=== PATIENT | female | born 1985 | race Caucasian/White ===

== ENCOUNTER 2023-01-10 06:14 | Emergency (ER) | payer BC, MEDICAID, SELFPAY ==
--- NOTE | ~2023-01-10 | XR_ITS ---
EXAMINATION: XR CHEST CLINICAL INFORMATION: Pain COMPARISON: None available. TECHNIQUE: Frontal view of the chest was obtained. One view FINDINGS: No significant abnormality is noted involving the heart, lungs, mediastinum, bony thorax or soft tissues. XR/XR chest 1V IMPRESSION: No evidence of acute cardiopulmonary disease.
[2023-01-10 06:21] VITALS: BMI 34.5
--- NOTE | 2023-01-10 06:22 | ECG_ITS ---
Test Reason : CHEST PAIN Blood Pressure : / mmHG Vent. Rate : 085 BPM Atrial Rate : 085 BPM P-R Int : 142 ms QRS Dur : 086 ms QT Int : 378 ms P-R-T Axes : 059 077 060 degrees QTc Int : 449 ms Normal sinus rhythm Normal ECG No previous ECGs available Referred By: Nelsy Hammonds Electronically Signed By:MICHAEL MAYA MD
[2023-01-10 06:24] VITALS: BP 118/79; PULSE 100; RESP 15; TEMP 36.4; O2SAT 100
[2023-01-10 06:34] LABS: MANUAL DIFF FLAG NO
[2023-01-10 06:35] LABS: Basophils Percent Auto 0.4 % (0-2); Eosinophils Absolute Auto 0.3 X10*3/uL (0.0-0.4); Eosinophils Percent Auto 3.3 % (0-4); Hematocrit 40.1 % (37.0-47.0); Hemoglobin 13.4 g/dl (12.0-16.0); Imm Gran Abs Auto 0.03 X10*3/uL (0.00-0.03); Imm Gran Pct Auto 0.3 % (0.0-0.4); Lymphocytes Absolute Auto 2.1 X10*3/uL (1.2-4.9); Lymphocytes Percent Auto 22.2 % (20-40); Mean Corpuscular HGB Conc 33.4 g/dl (31.0-35.0); Mean Corpuscular Hemoglobin 27.6 pg (27.0-33.0); Mean Corpuscular Volume 82.7 fL (80.0-98.0); Monocytes Absolute Auto 0.5 X10*3/uL (0.1-1.2); Monocytes Percent Auto 5.6 % (2-11); Neutrophils Absolute Auto 6.5 x10*3/uL (2.0-8.3); Neutrophils Percent Auto 68.2 % (45-73); Platelet Count 293 X10*3/uL (160-400); Red Blood Count 4.85 X10*6/uL (4.20-5.50); Red Cell Distribution Width 12.4 % (11.0-16.0); White Blood Count 9.6 X10*3/uL (4.8-10.8)
[2023-01-10 06:44] LABS: INTERNATIONAL NORM RATIO 0.9 (0.9-1.1); Prothrombin Time 10.6 SEC (11.1-13.3)
[2023-01-10 06:55] LABS: Alanine Aminotransferase 14 U/L (0-31); Albumin Level 4.3 g/dL (3.5-5.0); Alkaline Phosphatase 69 U/L (39-117); Anion Gap 15 (12-20); Aspartate Amino Transferase 18 U/L (5-31); Bilirubin Direct < 0.2 mg/dL (0.0-0.5); Bilirubin Total 0.2 mg/dL (0.0-1.0); Blood Urea Nitrogen 14 mg/dL (9-16); Calcium 9.7 mg/dL (8.4-10.2); Carbon Dioxide 23 mmol/L (22-29); Chloride 108 mmol/L (96-108); Creatinine Clr Calc Pharmacy 104.7; Estimated Glomerular Filt Rate > 60; Glucose Random 161 mg/dL (60-115); Magnesium 1.9 mg/dL (1.6-2.6); Potassium 3.9 mmol/L (3.3-5.1); Sodium 142 mmol/L (135-145); Total Protein 7.8 g/dL (6.5-8.0)
[2023-01-10 06:57] LABS: HCG Quantitative < 2 mIU/mL; Troponin-I High Sensitivity < 2.7 ng/L (<3.5-17.0)
--- NOTE | 2023-01-10 07:07 | PC.NURSE ---
Patient alert and oriented. dexacom reading showing bs is 226, patient asking if she can give herself 4 units of insulin via pump.Provider notified and okay with 4 units of self administered insulin
[2023-01-10 07:09] LABS: TSH reflex Free T4 0.69 uIU/mL (0.32-4.0)
[2023-01-10 07:22] VITALS: BP 121/88; PULSE 90; RESP 12; TEMP 36.5; O2SAT 97
--- NOTE | 2023-01-10 07:24 | ED_ITS ---
HPI - Arrhythmia/Palpitations General Chief Complaint: Arrhythmia/Palpitations Stated Complaint: Palpitations/Chest tightness Time Seen by Provider: 01/10/23 06:38 Source: patient Mode of arrival: ambulatory Limitations: no limitations History of Present Illness HPI narrative: 37-year-old female who presents emergency department for evaluation of palpitations. Patient states the last 2 days she has been having palpitations. She states that they mainly come on when she is at rest. She describes the sensation as a fast heartbeat with a skipping sensation of pounding sensation. She states she also experiences a brief tightness in her sternal area when she gets the palpitations. She states that this morning when she experience the palpitation she felt lightheaded. She states she also felt short of breath. The patient states that she stop drinking caffeine several weeks ago. She states that her job is stressful but she is not under increased stress. The patient does have a History of hypothyroidism and does have an manager web application the follows her diabetes and thyroid disease. patient denied fever, chills, rhinorrhea. She states she has had a occasional cough since yesterday. She denied nausea, vomiting, dark tarry stools, dysuria. The patient states she checked her apple watch while she was having palpitations in her heart rate was less than 100. She states that 2 weeks prior she did have a heart rate was 120 beats per minute but she was asymptomatic. Related Data Allergies Allergy/AdvReac Type Severity Reaction Status Date / Time No Known Allergies Allergy Unverified 12/12/19 19:00 [No Known Allergies*] Review of Systems 2 Review of Systems: Yes all other systems are reviewed and are negative [facility] Past Medical History Attestation statement: The following information was validated with the patient. [facility] Narrative: Past medical history: Diabetes mellitus, hyperlipidemia, hypothyroidism. Social history: She denies tobacco use. She drinks alcohol once a week -2-3 glasses of wine. She denies drug use. 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 Social History Social History Alcohol intake: current Alcohol intake frequency: a few times a week Smoked in Last 30 Days: No Advance Directives: No Advance Directives Information Provided: No Physical Exam 2 Vital Signs: Vital Signs: Last Vital Signs Temp 97.7 F 01/10/23 07:22 Pulse 90 01/10/23 07:22 Resp 12 01/10/23 07:22 BP 121/88 01/10/23 07:22 Pulse Ox 97 01/10/23 07:22 O2 Del Method Room Air 01/10/23 07:22 BMI result Body Mass Index 34.5 vital signs were normal exam: General: Awake, alert in no distress Head: Normocephalic, atraumatic EENT: PERRL, Lids normal, sclera normal, conjunctiva normal, nose normal , ears normal, throat without erythema or exudates Neck: Supple, no adenopathy, trachea midline and nontender Lung: breath sounds symmetric, no wheezing, rales or rhonchi Chest: symmetric movement, nontender Heart: regular rate and rhythm, normal S1, S2 no murmurs or rubs Abdomen: soft, non-tender, nondistended, normal bowel sounds Back: no vertebral tenderness, no CVAT Extremities: no deformities, moves all extremities symmetrically Skin: no rashes, no lesion, normal color and warmth Neuro: Awake, alert, oriented, normal speech, cranial nerves intact, moves all extremities symmetrically Psych: Pleasant, cooperative Medical Decision Making Medical Decision Making MDM Narrative: 37-year-old female with history of diabetes mellitus, hyperlipidemia, hypothyroidism who presents emergency department for evaluation of 2 days of palpitations. The patient did have associated chest pain, lightheadedness and shortness of breath however the symptoms were mild and brief. Following evaluation was ordered: 12 EKG, chest x-ray one view, CBC, quantitative beta- hCG, magnesium, PT / INR, troponin, BMP, liver panel, TSH with reflex T4. Patient was placed on a cardiac and O2 saturation monitor. 07:48 the patient's laboratory evaluation was unremarkable. Patient's 12 EKG and chest x-ray were normal. The patient most likely is experiencing PACs verses PVCs and I did discuss this with her. The patient was advised to follow-up with her PCP to pursue further outpatient workup of her palpitations. Differential Diagnosis Differential Diagnoses: The differential diagnosis associated with the presentation includes differential diagnosis includes was not limited to PACs, PVCs, arrhythmia Admission/Observation Consideration of admission/observation: Escalation of care including admission/observation considered Lab Data my independent interpretation of the patient's laboratory evaluation as follows: CBC was normal. BMP was normal. TSH was in the normal range. 01/10/23 06:28 01/10/23 06:28 Labs: Lab Results 01/10/23 Range/Units 06:28 WBC 9.6 (4.8-10.8) X10*3/uL RBC 4.85 (4.20-5.50) X10*6/uL Hgb 13.4 (12.0-16.0) g/dl Hct 40.1 (37.0-47.0) % MCV 82.7 (80.0-98.0) fL MCH 27.6 (27.0-33.0) pg MCHC 33.4 (31.0-35.0) g/dl RDW 12.4 (11.0-16.0) % Plt Count 293 (160-400) X10*3/uL MPV 11.0 (9.4-12.3) fL Immature Gran % (Auto) 0.3 (0.0-0.4) % Neut % (Auto) 68.2 (45-73) % Lymph % (Auto) 22.2 (20-40) % Carson % (Auto) 5.6 (2-11) % Eos % (Auto) 3.3 (0-4) % Baso % (Auto) 0.4 (0-2) % Lymph # (Auto) 2.1 (1.2-4.9) X10*3/uL Carson # (Auto) 0.5 (0.1-1.2) X10*3/uL Eos # (Auto) 0.3 (0.0-0.4) X10*3/uL Baso # (Auto) 0.0 (0.0-0.2) X10*3/uL Abs Immat Gran (auto) 0.03 (0.00-0.03) X10*3/uL Absolute Neuts (auto) 6.5 (2.0-8.3) x10*3/uL Absolute Nucleated RBC 0.000 (0.0-0.012) X10*3/uL Nucleated RBC % (auto) 0.0 (0.0-0.2) /100WBC PT 10.6 L (11.1-13.3) SEC INR 0.9 (0.9-1.1) Sodium 142 (135-145) mmol/L Potassium 3.9 (3.3-5.1) mmol/L Chloride 108 (96-108) mmol/L Carbon Dioxide 23 (22-29) mmol/L Anion Gap 15 (12-20) BUN 14 (9-16) mg/dL Creatinine 0.82 (0.5-1.4) mg/dL Estim Creat Clear Calc 104.7 Estimated GFR > 60 Random Glucose 161 H (60-115) mg/dL Calcium 9.7 (8.4-10.2) mg/dL Magnesium 1.9 (1.6-2.6) mg/dL Total Bilirubin 0.2 (0.0-1.0) mg/dL Direct Bilirubin < 0.2 (0.0-0.5) mg/dL AST 18 (5-31) U/L ALT 14 (0-31) U/L Alkaline Phosphatase 69 (39-117) U/L Troponin I High Sens < 2.7 (<3.5-17.0) ng/L Total Protein 7.8 (6.5-8.0) g/dL Albumin 4.3 (3.5-5.0) g/dL TSH 0.69 (0.32-4.0) uIU/mL Beta HCG, Quant < 2 mIU/mL Independent Interpretation I performed an independent interpretation of an: EKG Interpretation: My independent interpretation patient's 12 EKG is as follows: Normal sinus rhythm with a rate of 85, normal AR interval, QRS duration QTC interval, no ST segment elevation, no ST segment depression, no significant T-wave abnormalities-this is a normal EKG. My independent interpretation patient's one-view chest x-ray is as follows: No acute disease Radiology Impression Radiologist Impression: XR chest 1V IMPRESSION: No evidence of acute cardiopulmonary disease. Dictated By: Dianne Seals MD Discharge Plan Discharge Clinical Impression: Palpitations Patient Disposition: Home, Self-Care Instructions: Heart Palpitations (ED) Additional Instructions: You had a CBC, BMP, liver panel, quantitative test -these tests were all normal, you are not your TSH ( thyroid stimulating hormone ) was normal at 0.69, therapeutic range is 0.32 to 4.0. This suggests that your thyroid hormone is at the right level. Your palpitations are most likely caused by premature atrial contractions or premature ventricular contractions however you will need further testing by your primary care doctor which may include Holter monitor, event monitor, echocardiogram or other test that your doctor thinks are appropriate. Follow-up with your doctor in 2 days. Please return to the emergency department if your symptoms get worse or if you develop any symptoms that are concerning to you.
--- NOTE | 2023-01-10 08:11 | PC.NURSE ---
Discharge plan reviewed with patient who verbalized understanding
== END 2023-01-10 08:11 | disposition home or self-care (01) ==
PROVIDERS: Emergency Medicine; Emergency Provider Emergency Medicine Emergency Medical Services; PCP Family Medicine
DX: R00.2 Palpitations (principal); E11.9 Type 2 diabetes mellitus without complications; E78.5 Hyperlipidemia, unspecified; E03.9 Hypothyroidism, unspecified; R06.02 Shortness of breath
CPT/HCPCS: 36415; 71045; 80048; 80076; 83735; 84443; 84484; 84702; 85025; 85610; 93005; 99283; 99285

== ENCOUNTER 2024-11-29 02:30 | Emergency (ER) | payer BC, SELFPAY ==
[2024-11-29 02:34] VITALS: BP 114/75; PULSE 112; RESP 18; TEMP 36.8; O2SAT 97; BMI 23.6
[2024-11-29 03:08] VITALS: BP 109/66; PULSE 92; RESP 17; TEMP 36.9; O2SAT 98
--- NOTE | 2024-11-29 03:10 | PC.NURSE ---
Pt seen at primary for painful cyst on buttocks, given doxy as an abx. Pt has had two doses. PCP said they could not drain it, and they would call [facility] to drain it. Patient stating she took ibuprofen for pain and it did not help. Pt never heard back from [facility] or PCP but pain is 9/10. so she came in. Pt says sitting hurts worst, laying helps the most. given call [facility] to make her needs known. Alert and oriented with a steady gait. Plan of care is on going.
--- OUTSIDE RECORDS SUMMARY | 2024-11-29 03:16 | XMS_ITS | Clinical Summary ---
Author Organization [facility] Address [address] [place] [id number] Phone Care Team Providers Care Want Ad Clerk Name Role Phone Janel Haley MD Primary Care Provider [phone] Allergies No known active allergies Medications ONETOUCH VERIO Strp strips 1 each by Miscellaneous route every morning. Active lancets (ACCU-CHEK FASTCLIX LANCET DRUM MISC) by Miscellaneous route. Active multivitamin (MULTI-DAY ORAL) Take by mouth. Active vitamin B complex (B COMPLETE ORAL) Take by mouth. Active cholecalciferol, vitamin D3, (VITAMIN D3 ORAL) Take by mouth. Active blood-glucose meter,continuous (DEXCOM G6 LENDING CONSULTANT) MiscIndications:T ype 1 diabetes mellitus with hyperglycemia by Miscellaneous route as needed. 1 each 12/25/19 21 Active Additional Information Patient not taking.Reported on 06/03/2024 blood-glucose transmitter (DEXCOM G6 TRANSMITTER) DeviIndications:T ype 1 diabetes mellitus with hyperglycemia 1 application by Miscellaneous route daily. 1 each 3 12/25/19 21 Active Additional Information Patient not taking.Reported on 11/09/2023 blood-glucose meter,continuous (DEXCOM G7 LENDING CONSULTANT) MiscIndications:T ype 1 diabetes mellitus with hyperglycemia by Miscellaneous route as needed. 1 each 05/30/19 24 Active blood-glucose sensor (DEXCOM G7 SENSOR) DeviIndications:T ype 1 diabetes mellitus with hyperglycemia 1 Application by Miscellaneous route Every 10 Days. 3 each 11 05/30/19 24 Active levothyroxine (SYNTHROID, LEVOTHROID) 125 MCG tabletIndications :Hypothyroidism, unspecified type take 1 tablet by mouth every morning 90 tablet 3 12/11/19 24 Active HUMALOG KWIKPEN INSULIN 100 unit/mL kwikpenIndication s:Type 1 diabetes mellitus with hyperglycemia Inject 6-18 Units under the skin 3 (three) times a day with meals. 15 mL 1 06/04/19 25 Active BD INSULIN PEN NEEDLE UF SHORT 31 gauge x 16 NdleIndications:T ype 1 diabetes mellitus with hyperglycemia Inject 1 each under the skin 4 (four) times a day before meals and nightly. 400 each 3 06/04/19 25 Active LANTUS SOLOSTAR U-100 INSULIN 100 unit/mL (3 mL) InPn injection penIndications:Ty pe 1 diabetes mellitus with hyperglycemia Inject 15 Units under the skin nightly at bedtime. 15 mL 1 06/04/19 25 Active tirzepatide (MOUNJARO) 15 mg/0.5 mL PnIj subcutaneous penIndications:Ty pe 1 diabetes mellitus with hyperglycemia Inject 0.5 mL (15 mg total) under the skin every 7 days. 6 mL 1 06/04/19 25 Active atorvastatin (LIPITOR) 20 MG tabletIndications :Type 1 diabetes mellitus with hyperglycemia,Hyp erlipidemia LDL goal <100 Take 1 tablet (20 mg total) by mouth daily. 90 tablet 1 06/04/19 25 Active Active Problems Problem Noted Date Diagnosed Date Hypothyroidism 05/31/2021 Assessment & Plan (06/03/2024 2:46 PM EDT): Chemically and clinically euthyroid on current dose of levothyroxine will repeat thyroid function studies prior to the follow-up visit in 3 months. Assessment & Plan (02/19/2024 12:01 PM EST): Chemically and clinically euthyroid Assessment & Plan (11/09/2023 3:42 PM EDT): Chemically and clinically euthyroid continue current dose of levothyroxine. Assessment & Plan (05/30/2023 12:24 PM EST): Chemically and clinically euthyroid levothyroxine 125 mcg. She needs to repeat thyroid function studies prior to the follow-up visit in 3 months time. Assessment & Plan (01/12/2023 3:25 PM EDT): Chemically euthyroid continue current dose of levothyroxine Assessment & Plan (10/06/2022 3:14 PM EDT): Chemically and clinically euthyroid continue dose of levothyroxine 125 mcg. Thyroid function studies in 1 year by 08/18/2023. Assessment & Plan (11/09/2021 1:42 PM EDT): Chemically and clinically euthyroid continue levothyroxine 125 mcg daily. She is due for repeat thyroid function studies in 1 year x 11/09/2022. I will order thyroid function studies at a later date Assessment & Plan (05/31/2021 4:48 PM EST): Chemically euthyroid but symptomatic so I am increasing the dose of levothyroxine from 100 to 125 mcg and she will repeat thyroid function studies in 3 months. Hyperlipidemia LDL goal <100 02/24/2021 Assessment & Plan (06/03/2024 2:46 PM EDT): Controlled. LDL 63 mg/dL continue atorvastatin 20 mg. Repeat lipid panel fasting prior to the follow-up visit Assessment & Plan (02/19/2024 12:01 PM EST): Controlled. LDL 63 mg/dL on atorvastatin. Assessment & Plan (11/09/2023 3:46 PM EDT): Controlled. LDL 63 mg/dL continue atorvastatin 20 mg. No changes required. Assessment & Plan (05/30/2023 12:23 PM EST): Controlled. LDL 63 mg/dL continue atorvastatin 20 mg. Assessment & Plan (01/12/2023 3:25 PM EDT): Uncontrolled. LDL increased to 120 mg after stopping atorvastatin. She has since resumed atorvastatin. We will repeat lipid panel prior to the follow-up visit. Assessment & Plan (10/06/2022 3:15 PM EDT): Fair control LDL 100 mg/dL atorvastatin 20 mg. We will continue current dose. She will need a repeat lipid panel by January 2023. So we will request this study for the follow-up visit Assessment & Plan (03/02/2022 4:22 PM EST): Fair control the LDL was 100 mg/dL on atorvastatin 20 mg and not been to make any changes. Assessment & Plan (11/09/2021 1:38 PM EDT): Unfortunately LDL is back up she does forget to take cholesterol medication so she was advised to be more consistent with atorvastatin administration. I will repeat the lipid panel again prior to the follow-up visit Assessment & Plan (05/31/2021 4:47 PM EST): Much improved LDL 103 mg/dL on atorvastatin 20 mg on letter to make any changes for which is repeat the lipid panel in 3 months. Assessment & Plan (02/24/2021 4:40 PM EST): Uncontrolled. LDL 152 mg/dL will prescribe atorvastatin 20 mg. Advised on diet as well. She will repeat her lipid panel in 3 months. Type 1 diabetes mellitus with hyperglycemia 11/27 Assessment & Plan (06/03/2024 2:45 PM EDT): Uncontrolled. She is still having hypoglycemia overnight and 34% elevated glucose levels so she needs to bolus for her coffee and cream because that is resulting in elevated glucose levels and she needs to bolus for her meals. She is already at the maximum dose of Mounjaro. We have to decreased her Lantus again to 15 units because she still developing hypoglycemia. She is going low after dinner and maybe this is from Humalog but since I am decreasing the Lantus I want to change the correction scale.The patient has current severe hypoglycemia. There is significant concern hypoglycemic seizures which can be potentially fatal. I reemphasized to the patient that the use of insulin is high risk therapy that requires intensive monitoring for toxic effects (hypoglycemia, metabolic decompensation) due to the narrow therapeutic index of the medication and other factors (such as age, acute renal insufficiency, variable appetite and use of steroids) therefore close monitoring of blood sugar with regular review is paramount in the safe use of this medication. Assessment & Plan (02/19/2024 12:01 PM EST): Hemoglobin A1c 5.9%. She still having lows overnight so I am decreasing the Lantus to 20 units but she has elevated glucose during the day so I am increasing the Mounjaro to 15 she will continue the same correction scale. The patient has current severe hypoglycemia. There is significant concern hypoglycemic seizures which can be potentially fatal. I reemphasized to the patient that the use of insulin is high risk therapy that requires intensive monitoring for toxic effects (hypoglycemia, metabolic decompensation) due to the narrow therapeutic index of the medication and other factors (such as age, acute renal insufficiency, variable appetite and use of steroids) therefore close monitoring of blood sugar with regular review is paramount in the safe use of this medication. Assessment & Plan (11/09/2023 3:43 PM EDT): Uncontrolled. Hemoglobin A1c is 5.7% but she is having a lot of hypoglycemia. Yet the same time she is having postprandial hyperglycemia. Uncertain if this is because she is eating because of lower glucose levels in the cardiology consultant. She is already on correction scale 70-100 equal 6 units and increasing by 2 units every 50 mg/dL. She should continue Mounjaro at the current dose decrease the Lantus to 25 units. If in 1 week's time her glucose levels are still going low overnight she should decrease the Lantus to 20 units. But if she notices that her postprandial glucose going up she needs to increase the correction scale by 2 units. She will follow-up within 3 months. Assessment & Plan (05/30/2023 12:23 PM EST): Uncontrolled based on CGM glycemic levels. But the A1c is good. I am going to increase the Mounjaro to 12.5 continue the insulin the same. Assessment & Plan (01/12/2023 3:29 PM EDT): Based on her hemoglobin A1c she appears to be controlled to have 6.2% based on the CGM she is not controlled. She is only has 64% in range. She has 27% of the glucose are elevated and she also has hypoglycemia 2% severe at 7% ranging from 54 to 70 mg/dL. The problem is just high standard deviation. Her CGM reads that on average glucose are between 70 and 180 but she has so much variability which can sometimes result in hypoglycemia and also hypoglycemia. She would like to increase the dose of Mounjaro from 7.5 to 10 mg, I will make any changes to her insulin regimen. I told her that she must have 3 meals and she must administer insulin because I do not want him to go in DKA as a result of using it. Mounjaro would stimulate insulin secretion which is a type I diabetic so I doubt that she stimulating much insulin so she needs to take insulin administration. The patient has current severe hypoglycemia. There is significant concern hypoglycemic seizures which can be potentially fatal. I reemphasized to the patient that the use of insulin is high risk therapy that requires intensive monitoring for toxic effects (hypoglycemia, metabolic decompensation) due to the narrow therapeutic index of the medication and other factors (such as age, acute renal insufficiency, variable appetite and use of steroids) therefore close monitoring of blood sugar with regular review is paramount in the safe use of this medication. Assessment & Plan (10/06/2022 3:22 PM EDT): Controlled. Hemoglobin A1c 6.0%, however she is still having postprandial hyperglycemia she needs a little bit more NovoLog. I think she just needs a little bit more NovoLog with meals and I plan to increase the correction scale by 2 units on a correction scale will start at 70-100 = 6 units increasing by 2 units every 50 mg/dL. Assessment & Plan (03/02/2022 4:48 PM EST): Based on the hemoglobin A1c of 5.9% she appears to be controlled but the CGM does not reflect that. I wonder if she was anemic but I did check her last CBC and she was not anemic at that time. So maybe is just the last 2 weeks which she is off in terms of in target range. But she is having postprandial breakfast glucose elevation and borderline at dinner. Then 3 to 4 hours after dinner her glucose starts dropping and continue to drop into 1 AM before they start rising may be this is a glucagon reaction for lowering glucose levels. So I asked her to drop the Lantus again to 30 units she is going to drop to Humalog correction scale starting at 70-100 = 2 units and increasing by 2 units every 50 mg/dL and the reason why we are doing this is because she is going to try a new medication which is a combination of GLP and GIP called Mounjaro. She does not have any contraindications such as pancreatitis or medullary thyroid carcinoma. This medication may be associated with nausea, vomiting, diarrhea, constipation so we will start out with the smallest dose and giving her a sample of the 2.5 mg daily and then she will try to obtain the 5 mg dose not going to go any higher than the 5 mg dose initially just to make sure that she does not develop hypoglycemia. She will follow in 3 months time. I gave the patient a sample of Mounjaro lot number [id number], expiration September 15, 2023. She was instructed on the use of the medication and injected herself today. Assessment & Plan (11/09/2021 1:39 PM EDT): Based on her hemoglobin A1c she appears controlled with A1c of 6.4% but she is having so many lows overnight. She does not sense the hypoglycemia she has But does not check her glucose level because she does not have her meter. So I wonder if she is actually hypoglycemic aware. I think that she may be getting too much basal insulin I asked her to decrease her Lantus from 40 to 35 units because the lows are overnight not during the day when she is eating.The patient has current severe hypoglycemia. There is significant concern hypoglycemic seizures which can be potentially fatal. I reemphasized to the patient that the use of insulin is high risk therapy that requires intensive monitoring for toxic effects (hypoglycemia, metabolic decompensation) due to the narrow therapeutic index of the medication and other factors (such as age, acute renal insufficiency, variable appetite and use of steroids) therefore close monitoring of blood sugar with regular review is paramount in the safe use of this medication. Assessment & Plan (05/31/2021 4:48 PM EST): She is using 38% bolus 62% basal but still has postprandial hyperglycemia and some increasing the Humalog correction scale by 2 units from 70-100 =4 units increasing by 2 units every 50 mg/dL. She will continue Lantus 40 units daily. Repeat hemoglobin A1c in 3 months. Assessment & Plan (02/24/2021 4:52 PM EST): Based on her last hemoglobin A1c she has fair control but on the CGM she has elevated glucose levels. Because she is said to be type I diabetic and going to increase the Humalog correction scale but she really needs to document her Humalog for me because there is very difficult for me to know what to adjust. I need to calculate the total daily dose I need to calculate basal and bolus ratio so I need to know how much Humalog she is using for at least 1 week. I gave her a log sheet to document this so she can bring it in for the follow-up visit. In the meantime she does not look like a type I but apparently she has been checked twice or 3 times when one of them she was told that she was a type II another she was told she was type I. So not repeat the blood test so I can see what shows up. Would definitely be easier to treat her as a type II because then we will have the ability to use oral antidiabetic medications and GLP-1 agonist. But until then we will continue with insulin. I have increased her Humalog correction scale as follows for glucose 70-100 should administer 4 units increase by 2 units every 50 mg/dL should continue Lantus 40 units. Assessment & Plan (12/24/2020 3:59 PM EDT): Fair control. Hemoglobin A1c 7.0%. She will continue Lantus 40 units. I am giving her Humalog correction starting at 70-100 =2 units creasing by 2 units every 50 mg/dL because apparently she has insulin resistance despite being a type I diabetic. She really did not know what her correction scale was previously so we will start at this point. She was given a log sheet to document her glucose levels and to document Humalog administration. She needs to bring this at on the follow-up visit and she needs to bring in her meter. I also requested lab work. Encounters Date Type Department Care Team Description 09/25/2024 Telephone [facility] Endocrinology [address] [place] [address] [place] [id number] Gary Bojorquez DO from Last 3 Months Immunizations Immunization Administration Dates Next Due Pneumococcal conjugate PCV13 09/02/2016 Pneumococcal polysaccharide PPSV23 03/26/2019 Td (adult),2 Lf Tetanus Toxoid, PF, Adsorbed 05/2020 Tdap 11/30/2010 Family History Medical History Relation Comments No Known Problems Father Thyroid disease Mother Relation Status Comments Father Alive Mother Alive Social History Tobacco Use Types Packs/Day Years Used Date Smoking Tobacco: Never Smokeless Tobacco: Never Alcohol Use Standard Drinks/Week Comments Yes 8 (1 standard drink = 0.6 oz pur e alcohol) Education Answer Date Recorded Are you interested in more education? Not on tamara e 07/22/2022 Are you concerned about learning? Not on file 07/22/2022 No 07/22/2022 No 07/22/2022 Digital Access Answer Date Recorded No 08/22/2022 No 08/22/2022 Reliable internet access at home? Not on file 08/22/2022 Device with a working camera? Not on file Comments Unknown Sex and Gender Information Value Date Recorded Sex Assigned at Female 03/01/2022 8:07 PM EST Legal Sex Female 9:09 PM EDT Gender Identity Female 03/01/2022 8:07 PM EST Sexual Orientation Not on file Last Filed Vital Signs Vital Sign Reading Time Taken Comments Blood Pressure 110/58 06/03/2024 2:13 PM EDT Pulse 88 06/03/2024 2:13 PM EDT Temperature 36.9 C (98.5 F) 01/12/2023 3:04 PM EDT Respiratory Rate 18 05/31/2021 4:20 PM EST Oxygen Saturation 99% 06/03/2024 2:13 PM EDT Inhaled Oxygen Concentration - - Weight 70.5 kg (155 lb 6.4 oz) 06/03/2024 2:13 P M EDT Height 163.4 cm (5' 4.33 ) 02/19/2024 11:[address] Body Mass Index 26.4 02/19/2024 11:34 AM EST Plan of Treatment Upcoming Encounters Date Type Department Care Team (Late st Contact Info) Description 12/02/2024 10:10 AM EDT Office Visit [facility] [address] [place] [address] Gary Bojorquez DO [address] [place] [address] [email or web address] Health Maintenance Due Date Last Done Comments DEPRESSION SCREENING 1999 HEPATITIS C SCREENING 08/01/2005 HIV ONE-TIME SCREENING (18-65 YEARS) 08/01/2005 PAP SMEAR 08/01/2008 DIABETIC EYE EXAM 12/24/2020 TSH LEVEL 09/06/2024 09/07/2023, 05/0 06/2022, 08/30/2021, Additional history exists INFLUENZA VACCINE (#1) 2024 COVID-19 VACCINE ( - 2024- season) 2024 09/26/2020, 09/05/2020 BLOOD PRESSURE 12/04/2024 06/03/2024 HEMOGLOBIN A1C 12/04/2024 06/03/2024, 01/26, 09/07/2023, Additional history exists URINE MICROALBUMIN/CREATININE RATIO 02/15/2025 02/16/2024, 06/01/2022, 02/23/2021 Adult Td,Tdap Booster 10/27/2030 10/27/2020 , 01/01/2018, 11/30/2010 PNEUMOCOCCAL VACCINES (0-49 years) (3 of 3 - PCV20 or PCV21) 08/01/2037 03/26/2019, 09/02/2016 SMOKING STATUS SCREENING (Once After 26 Yrs) Completed 02/19/2024 HEPATITIS A VACCINES Aged Out No long er eligible based on patient's age to complete this topic HIB VACCINES Aged Out No longer eligi ble based on patient's age to complete this topic MENINGOCOCCAL VACCINES (ACWY) Aged Out No longer eligible based on patient's age to complete this topic MENINGOCOCCAL VACCINES (B) Aged Out N o longer eligible based on patient's age to complete this topic Medical Devices Not on file Procedures Procedure Name Priority Date/Time Associated Diagnosis Comments POCT HEMOGLOBIN A1C Routine 06/03/2024 2 :47 PM EDT Type 1 diabetes mellitus with hyperglycemia MICROALBUMIN/CREATI NINE RATIO, RANDOM URINE Routine 02/16/2024 8:50 AM EST Type 1 diabetes mellitus with hyperglycemia TSH Routine 09/07/2023 8:35 AM EDT Hypothyroidism, unspecified type from Last 3 Months or Most Recently Relevant to Health Maintenance Results * (ABNORMAL) POCT Hemoglobin A1c (06/03/2024 2:47 PM EDT) Hemoglobin A1c 5.9(A) 4.2 - 5.8 % Other 06/03/2024 2:47 PM EDT us Gary Bojorquez DO POINT OF CARE TEST ORDERABLES Fi nal Result * Microalbumin/creatinine ratio, random urine (02/16/2024 8:50 AM EST) URINE MICROALBUMIN <1.2 0 - 2.3 mg/dL [facility] URINE CREATININE 232 mg/dL [facility] MICROALB/CRE RATIO NOT CALCULATED 0 - 20 mg/g Cre [facility] Comment:due to Microalbumin <1.2 Urine (Urine) 02/16/2024 8:5 0 AM EST 02/16/2024 8:52 AM EST us Gary Bojorquez DO URINE ORDERABLES Final Result [address] [address] * TSH (09/07/2023 8:35 AM EDT) TSH 0.65 0.27 - 4.20 uIU/mL [facility] Blood 09/07/2023 8:35 AM EDT 09/07/2023 8:39 AM EDT us Gary Bojorquez DO LAB BLOOD ORDERABLES Final Resul t [address] [id number] from Last 3 Months or Most Recently Relevant to Health Maintenance Insurance [facility] Care Teams Want Ad Clerk Relationship Specialty Start Date End Date Janel Haley MD [email or web address] PCP - General 01/09/17 Additional Source Comments The information contained in this document represents components of the legal health record. It is not the complete legal health record.[facility]
[2024-11-29] MEDS: Lidocaine HCl 1 % 10 ML VIAL 30 ML INFILTRATI (03:59)
--- NOTE | 2024-11-29 04:36 | ED_ITS ---
HPI - Skin/Abscess/Foreign Bdy General Chief complaint: Skin/Abscess/Foreign Body Stated complaint: cyst Time Seen by Provider: 11/29/24 03:17 Source: patient Mode of arrival: ambulatory Limitations: no limitations History of Present Illness ED Provider: Dr. Lavinia Witt HPI narrative: Patient comes to the emergency room complaining of a cyst in the groin area. Patient states that today she went to see her PCP, started on antibiotics. Patient states that she called her OBGYN at [facility] but she never got a phone call back. Patient states that the cyst keeps getting bigger. Complaining of pain with sitting and chills. Took ibuprofen 3 hours ago without any relief. Patient states that she has had assist in the past but it was much smaller. Related Data Previous Rx's ?Medication ?Instructions ?Recorded cephalexin 500 mg capsule 500 mg PO BID #19 caps 11/29 oxycodone 5 mg tablet 5 mg PO BID PRN pain #8 tabs 11/29/24 Allergies Allergy/AdvReac Type Severity Reaction Status Date / Time No Known Allergies (No Known Allergy Verified 11/29/24 02:38 Allergies*) Review of Systems Review of Systems: Constitutional : No Weight loss, No Fever, No Chills, No Night Sweats, No Fatigue, No Malaise ENT/Mouth : No Hearing loss, No Ear Pain, No Nasal Congestion, No Sinus Pain, No Hoarseness, No sore throat, No Rhinorrhea, No Swallowing Difficulty Eyes: No Eye Pain, No Swelling, No Redness, No Foreign Body, No Discharge, No Vision Changes Cardiovascular : No Chest Pain, No SOB, No Dyspnea on Exertion, No Orthopnea, No Edema, No Palpitations Respiratory : No Cough, No Sputum, No Wheezing, No Smoke Exposure, No Dyspnea Gastrointestinal : No Nausea, No Vomiting, No Diarrhea, No Constipation, No abdominal Pain, No Hematochezia, No Melena Genitourinary : Complaining of a cyst in the left labia majora done to the left buttock No Dysuria, No Urinary Frequency, No Hematuria, No Urinary Incontinence, No Urgency, No Flank Pain, No Urinary Flow Changes, No Hesitancy Musculoskeletal : No joint pain, No Myalgias, No Joint Swelling Skin : No Skin Lesions, No rash Neuro : No Weakness, No Numbness, No Paresthesias, No Loss of Consciousness, No Dizziness, No Headache Psych : No Anxiety/Panic, No Depression, No SI/HI/AH/VH, No Social Issues, Heme/Lymph: No Bruising, No Bleeding,No Lymphadenopathy Endocrine : No Polyuria, No Polydipsia, No Temperature Intolerance [facility] Social History Social History Alcohol intake: current Alcohol intake frequency: holidays/special occasions only Smoked in Last 30 Days: No Use of substances other than those prescribed or required for medical reasons: No Advance Directives: No Do you have a plan to hurt others: No Plan Physical Exam Exam: Exam: Appearance: Alert. Oriented X3. No acute distress. Eyes: Pupils equal, round and reactive to light. ENT: Pharynx normal. Neck: Normal inspection. Neck supple. No lymph nodes noted. No crepitus CVS: Normal heart rate and rhythm. Pulses normal. Normal S1 and S2 Respiratory: No respiratory distress. Breath sounds normal. No Wheezing. No rales Abdomen: Soft and nontender. No rigidity. No distention. : There is 2 cm x 3 cm abscess visualized with bedside ultrasound: A proximally 1 cm deep. Skin: Skin warm and dry. Normal skin color. Normal skin turgor. Extremities: No lower extremity edema. No Lacerations. No Rash Neuro: Oriented X 3. No motor deficit. No sensory deficit. Moving all extremities. No slurred speech. CN 2 through 12 grossly intact Psych: calm, cooperative, normal affect Vital Signs: Vital Signs: Last Vital Signs Temp 98.4 F 11/29/24 03:08 Pulse 92 11/29/24 03:08 Resp 17 11/29/24 03:08 BP 109/66 11/29/24 03:08 Pulse Ox 98 11/29/24 03:08 O2 Del Method Room Air 11/29/24 03:08 BMI result Body Mass Index 23.6 Course Course Course Narrative: I discussed with the patient the physical exam patient agreeable to proceed with I and D This does not seem to be a typical Bartholin's cyst. This is in the external labia majora going down towards the lower part of the buttocks. The wound was cleaned with Betadine and 10 mL of 1% lidocaine without epinephrine were injected A 0.5 cm incision was made with an 11 size blade: A moderate amount of pus was expressed. However, seems that this abscess may be loculated. Packing was inserted Discussed with the patient that she will need a wound check in 24-48 hours, ideally with her OBGYN. I discussed with the patient that unfortunately, this abscesses tend to reoccur, if it happens, she may need a marsupialization to her OBGYN. Patient agrees with plan. Patient has been taking doxycycline. Patient was given Keflex here in the emergency room, instructed to take both antibiotics. Also, patient was given p.o. oxycodone. Medications Administered Discontinued Medications Generic Name Dose Route Start Last Admin Trade Name Freq PRN Reason Stop Dose Admin Lidocaine HCl 30 ml 11/29/24 03:54 11/29/24 03:59 Lidocaine Hcl 1 % 10 Ml Vial INFILTRATI 11/29/24 03:55 30 ml ONCE ONE Administration Procedures Abscess I/D Site: other Side (if applicable): left Local Anesthetic: lidocaine 1% Amount of anesthesia used (mL): 10 Technique: incised with blade and ultrasound guided Amount of fluid expressed (mL): 25 Sent for culture/gram staining?: No Irrigation: Yes Packing used?: [email or web address] Critical Care Time Critical Care Time Critical Care Time: Yes Total Critical Care Time: 50 Attestation: I have personally provided critical care time. Time includes review of lab data, radiology results, discussion with consultants, and monitoring for potential decompensation. Intervention performed as documented. Discharge Plan Discharge Clinical Impression: Abscess of skin or subcutaneous tissue Patient Disposition: Home, Self-Care Instructions: Abscess (ED), Abscess Incision and Drainage (DC) Additional Instructions: Please follow-up with your OBGYN and primary care physician tomorrow. If you have any worsening or new symptoms, please return to the emergency room or call 911 Prescriptions: New cephalexin 500 mg capsule 500 mg PO BID Qty: 19 0RF oxycodone 5 mg tablet 5 mg PO BID PRN (Reason: pain) Qty: 8 0RF Rx Instructions: Partial Fill upon patient request. Stand Alone Forms: Work/School Release Print Language: Upper Sorbian
[2024-11-29] MEDS: oxyCODONE HCl Immed Release 5 MG TABLET PO (04:48)
[2024-11-29 04:50] VITALS: BP 97/53; PULSE 86; RESP 16; TEMP 36.7; O2SAT 99
[2024-11-29 04:59] VITALS: BP 97/53; PULSE 86; RESP 16; TEMP 36.7; O2SAT 99
== END 2024-11-29 05:00 | disposition home or self-care (01) ==
PROVIDERS: Emergency Provider Emergency Medicine; PCP Family Medicine
DX: L02.214 Cutaneous abscess of groin (principal)
CPT/HCPCS: 10060; 99284; J2003